=== PATIENT | male | born 1985 | race Caucasian/White ===

== ENCOUNTER 2020-12-08 09:26 | Emergency (ER) | payer OTHER ==
[~2020-12-08 09:26] MED LIST: IBUPROFEN600 MG PO; NAPROSYN500 MG PO; [UNRECOGNIZED DRUG - SUPPLY]
[2020-12-08 10:14] LABS: HEMOGLOBIN 15.1 gm/dl (14.0-17.5); RED BLOOD COUNT 5.01 M/UL (4.20-5.50); WHITE BLOOD COUNT 6.6 K/UL (4.5-11.0)
[2020-12-08 10:41] LABS: BUN/CREATININE RATIO 21 (0-10)
[2020-12-08] MEDS ORDERED: IBUPROFEN600 MG PO (11:16)
[2020-12-08] MEDS ORDERED: CYCLOBENZAPRINE10 MG PO (11:17)
== END 2020-12-08 11:27 | disposition home or self-care (01) ==
LOC: ER1 09:26
PROVIDERS: Emergency Medicine
DX: S23.3XXA Sprain of ligaments of thoracic spine, initial encounter (principal); E11.9 Type 2 diabetes mellitus without complications; J45.909 Unspecified asthma, uncomplicated; X58.XXXA Exposure to other specified factors, initial encounter
CPT/HCPCS: 71046; 80053; 82550; 82553; 83874; 84484; 85025; 85379; 99283

== ENCOUNTER 2020-12-27 08:58 | Emergency (ER) | payer OTHER ==
[~2020-12-27 08:58] MED LIST changes: +CYCLOBENZAPRINE10 MG PO
[2020-12-27] MEDS ORDERED: INDOCIN CAP 2525 MG PO (09:47)
== END 2020-12-27 10:52 | disposition home or self-care (01) ==
LOC: ER1 08:58
DX: M79.671 Pain in right foot (principal); E11.9 Type 2 diabetes mellitus without complications
CPT/HCPCS: 73630; 99283

== ENCOUNTER 2021-03-12 05:18 | Emergency (ER) | payer BC ==
[~2021-03-12 05:18] MED LIST changes: +INDOCIN CAP 2525 MG PO
[2021-03-12 07:07] LABS: HEMOGLOBIN 16.4 gm/dl (14.0-17.5); RED BLOOD COUNT 5.35 M/UL (4.20-5.50); WHITE BLOOD COUNT 7.1 K/UL (4.5-11.0)
[2021-03-12 07:24] LABS: BUN/CREATININE RATIO 26 (0-10)
[2021-03-12] MEDS ORDERED: PREDNISONE 50 M50 MG PO (16:59)
== END 2021-03-12 09:13 | disposition home or self-care (01) ==
LOC: ER1 05:18
PROVIDERS: Emergency Medicine
DX: R10.11 Right upper quadrant pain (principal); R11.2 Nausea with vomiting, unspecified
CPT/HCPCS: 80053; 81001; 83690; 85025; 96374; 96375; 99284; J1170; J1885; J2405; Q9967

== ENCOUNTER 2021-03-12 14:51 | Emergency (ER) | payer BC ==
[2021-03-12] MEDS ORDERED: PREDNISONE 50 M50 MG PO (16:59)
== END 2021-03-12 17:12 | disposition home or self-care (01) ==
LOC: ER1 14:51
DX: L23.7 Allergic contact dermatitis due to plants, except food (principal); J45.909 Unspecified asthma, uncomplicated; E11.9 Type 2 diabetes mellitus without complications; Z91.041 Radiographic dye allergy status
CPT/HCPCS: 82962; 96372; 99284; J2930

== ENCOUNTER 2021-05-23 17:22 | Emergency (ER) | payer BC ==
[~2021-05-23 17:22] MED LIST changes: +PREDNISONE 50 M50 MG PO
== END 2021-05-23 18:45 | disposition home or self-care (01) ==
LOC: ER1 17:22
DX: S86.911A Strain of unspecified muscle(s) and tendon(s) at lower leg level, right leg, initial encounter (principal); E11.9 Type 2 diabetes mellitus without complications; X50.0XXA Overexertion from strenuous movement or load, initial encounter; Y92.009 Unspecified place in unspecified non-institutional (private) residence as the place of occurrence of the external cause
CPT/HCPCS: 73590; 99283

== ENCOUNTER 2021-05-31 12:34 | Emergency (ER) | payer BC | END 2021-05-31 13:51 | disposition home or self-care (01) | LOC: ER1 12:34 | DX: S61.412A Laceration without foreign body of left hand, initial encounter (principal); E11.9 Type 2 diabetes mellitus without complications; J45.909 Unspecified asthma, uncomplicated; Z91.041 Radiographic dye allergy status; Z91.013 Allergy to seafood; W26.0XXA Contact with knife, initial encounter; Y92.89 Other specified places as the place of occurrence of the external cause; Y99.0 Civilian activity done for income or pay | CPT/HCPCS: 12001; 90715; 99282 ==

== ENCOUNTER 2021-11-17 00:17 | Emergency (ER) | payer SELFPAY | END 2021-11-17 01:04 | disposition left against medical advice (07) | LOC: ER1 00:17 | DX: R07.9 Chest pain, unspecified (principal); E11.9 Type 2 diabetes mellitus without complications; Z88.6 Allergy status to analgesic agent | CPT/HCPCS: 93005; 99281 ==

== ENCOUNTER 2021-12-08 21:55 | Emergency (ER) | payer SELFPAY ==
[2021-12-08 22:25] LABS: HEMOGLOBIN 16.4 gm/dl (14.0-17.5); RED BLOOD COUNT 5.47 M/UL (4.20-5.50); WHITE BLOOD COUNT 10.9 K/UL (4.5-11.0)
[2021-12-08 22:46] LABS: BUN/CREATININE RATIO 17 (0-10)
== END 2021-12-09 02:08 | disposition home or self-care (01) ==
LOC: ER1 21:55
PROVIDERS: Student in an Organized Health Care Education/Training Program
DX: R10.12 Left upper quadrant pain (principal); R07.9 Chest pain, unspecified; J45.909 Unspecified asthma, uncomplicated; E11.9 Type 2 diabetes mellitus without complications; Z79.84 Long term (current) use of oral hypoglycemic drugs; Z79.82 Long term (current) use of aspirin
CPT/HCPCS: 71046; 80053; 82550; 82553; 83690; 84484; 85025; 93005; 99285

== ENCOUNTER 2021-12-14 15:28 | Emergency (ER) | payer SELFPAY ==
[2021-12-14 20:29] LABS: HEMOGLOBIN 15.6 gm/dl (14.0-17.5); RED BLOOD COUNT 5.11 M/UL (4.20-5.50); WHITE BLOOD COUNT 9.4 K/UL (4.5-11.0)
[2021-12-14 20:51] LABS: BUN/CREATININE RATIO 18 (0-10)
== END 2021-12-14 21:23 | disposition home or self-care (01) ==
LOC: ER1 15:28
PROVIDERS: Student in an Organized Health Care Education/Training Program
DX: R10.32 Left lower quadrant pain (principal); E11.9 Type 2 diabetes mellitus without complications; Z88.8 Allergy status to other drugs, medicaments and biological substances
CPT/HCPCS: 80053; 81001; 85025; 99284

== ENCOUNTER 2022-03-19 20:02 | Emergency (ER) | payer SELFPAY ==
[2022-03-19 20:54] LABS: HEMOGLOBIN 17.4 gm/dl (14.0-17.5); RED BLOOD COUNT 5.78 M/UL (4.20-5.50); WHITE BLOOD COUNT 8.2 K/UL (4.5-11.0)
[2022-03-19 21:06] LABS: BUN/CREATININE RATIO 15 (0-10)
== END 2022-03-19 22:50 | disposition home or self-care (01) ==
LOC: ER1 20:02
PROVIDERS: Family Medicine
DX: R10.32 Left lower quadrant pain (principal); E11.9 Type 2 diabetes mellitus without complications; Z79.84 Long term (current) use of oral hypoglycemic drugs
CPT/HCPCS: 80053; 81001; 83690; 85025; 99284

== ENCOUNTER 2022-05-08 18:26 | Emergency (ER) | payer SELFPAY ==
[2022-05-08 19:30] LABS: HEMOGLOBIN 15.4 gm/dl (14.0-17.5); RED BLOOD COUNT 5.14 M/UL (4.20-5.50); WHITE BLOOD COUNT 7.5 K/UL (4.5-11.0)
[2022-05-08 20:08] LABS: BUN/CREATININE RATIO 20 (0-10)
== END 2022-05-08 20:30 | disposition left against medical advice (07) ==
LOC: ER1 18:26
PROVIDERS: Emergency Medicine
DX: Z53.21 Procedure and treatment not carried out due to patient leaving prior to being seen by health care provider (principal)
CPT/HCPCS: 71045; 80053; 82550; 82553; 84484; 85025; 93005